=== PATIENT | female | born 1985 | race African-American/Black ===

== ENCOUNTER 2017-05-20 07:15 | Emergency (ER) | payer OTHER ==
[2017-05-20 07:32] VITALS: BP 106/71; PULSE 63; TEMP 98.8; BMI 21.9
[2017-05-20] MEDS ORDERED: SODIUM CHLORIDE 1,000 ML IV STA (08:21)
[2017-05-20] MEDS ORDERED: METOCLOPRAMIDE HCL INJECTION 10 MG/2 ML VIAL IVPUSH ONE (08:21)
[2017-05-20] MEDS ORDERED: METOCLOPRAMIDE HCL INJECTION 10 MG/2 ML VIAL ONE (08:33)
--- NOTE | 2017-05-20 08:37 | PDOC ---
History of Present Illness - General Chief Complaint: Headache Stated Complaint: HEADACHE AND BODY PAIN Time Seen by Provider: 05/20/17 07:53 History Source: Patient Exam Limitations: No Limitations - History of Present Illness Initial Comments: 32yo F with no significant PMH presents c/o headache since yesterday morning. Pain goes through the entire head, non-radiating, feels tight/tension-band, rated 10/10. Headache is worse with standing. Pt took Motrin 800mg last night which did not relieve the pain. Pt also c/o dizziness and nausea. Pt denies photophobia, hx of headaches, sick contacts, recent illness, fever, chills, vomiting, chest pain, palpitations, sob. PCP: Dr. Gauthier 05/20/17 08:23 Past History - Past Medical History Allergies/Adverse Reactions: Allergies Allergy/AdvReac Type Severity Reaction Status Date / Time No Known Allergies Allergy Verified 05/20/17 07:28 Home Medications: Ambulatory Orders NK [No Known Home Medication] 05/20/17 Other medical history: Denies - Surgical History Other Surgical History: 200405/20/17 08:38 - Reproductive History LMP comment: 04/27/17 - Immunization History Immunization Up to Date: Yes - Psycho/Social/Smoking Cessation Hx Anxiety: No Suicidal Ideation: No Smoking Status: Yes Smoking History: Never smoked Have you smoked in the past 12 months: No Information on smoking cessation initiated: No 'Breaking Loose' booklet given: 03/02/14 Hx Alcohol Use: No Drug/Substance Use Hx: Yes (Marijuana) Substance Use Type: Marijuana Review of Systems - Review of Systems Constitutional: Yes: Weight Stable. No: Chills, Diaphoresis, Fever HEENTM: No: Recent change in vision, Ear Pain, Nose Pain, Throat Pain Respiratory: No: Cough, Orthopnea, Shortness of Breath, Stridor, Wheezing, Hemoptysis Cardiac (ROS): No: Chest Pain, Edema, Irregular Heart Rate, Lightheadedness, Palpitations, Chest Tightness ABD/GI: Yes: Nausea. No: Abdominal Distended, Constipated, Diarrhea, Rectal Bleeding, Vomiting, Abdominal cramping : No: Dysuria, Hematuria Musculoskeletal: No: Joint Pain, Muscle Pain, Neck Pain Integumentary: No: Bruising, Lumps, Rash Neurological: Yes: Headache, Dizziness. No: Weakness, Unsteady Gait *Physical Exam - Vital Signs Last Vital Signs Temp Pulse Resp BP Pulse Ox 98.8 F 63 16 106/71 98 05/20/17 07:29 05/20/17 07:29 05/20/17 07:29 05/20/17 07:29 05/20/17 07:29 - Physical Exam General Appearance: Yes: Nourished, Appropriately Dressed, Mild Distress HEENT: positive: EOMI, AKUA, Normal Voice. negative: Pale Conjunctivae, Photophobia, Scleral Icterus (R), Scleral Icterus (L), Nasal Congestion, Rhinorrhea Neck: positive: Trachea midline, Supple Respiratory/Chest: positive: Lungs Clear, Normal Breath Sounds. negative: Respiratory Distress, Accessory Muscle Use Cardiovascular: positive: Regular Rhythm, Regular Rate, S1, S2. negative: Murmur Gastrointestinal/Abdominal: positive: Soft. negative: Distended, Guarding, Rebound, Tenderness Musculoskeletal: positive: Normal Inspection Extremity: positive: Normal Inspection Integumentary: positive: Normal Color, Dry, Warm Neurologic: positive: Fully Oriented, Alert, Normal Mood/Affect, Normal Response , Motor Strength 5/5 ED Treatment Course - LABORATORY CBC & Chemistry Diagram: 05/20/17 09:05 05/20/17 09:05 Medical Decision Making - Medical Decision Making 32yo F with no significant PMH presents c/o headache since yesterday morning. Pt also c/o dizziness and nausea, denies vomiting. Ddx: tension headache vs dehydration vs caffeine withdrawal headache EKG UA/urine CBC with diff, CMP NS 1 L bolus Reglan 10mg IVpush 05/20/17 08:42 05/20/17 09:28 Pt reassessed, pain is somewhat less. Fioricet 1 cap given for headache Toradol 30mg IVpush given for pain EKG -> normal rhythm, HR 59 05/20/17 10:22 CBC with diff -> wnl CMP -> wnl UA (-) urine (-) Pt reports feeling better and wanting to go home. 05/20/17 10:25 Pt can go home. *DC/Admit/Observation/Transfer Diagnosis at time of Disposition: Headache - Discharge Dispostion Disposition: HOME Condition at time of disposition: Improved Admit: No - Referrals Referrals: Humphrey Gauthier MD [Primary Care Provider] - - Patient Instructions Printed Discharge Instructions: DI for Headache Additional Instructions: Please return to the hospital for persistent or worsening symptoms of headache. I hope you feel better!
[2017-05-20 09:17] LABS: BASOPHIL 0.4 % (0-2.0); EOSINOPHIL 1.3 % (0-4.5); MCH 32.7 pg (25.7-33.7); MCHC 34.4 g/dl (32.0-36.0); MEAN CELL VOLUME 95.3 fl (80-96); MEAN PLT VOLUME 7.8 fl (7.5-11.1); NEUTROPHILS 62.5 % (42.8-82.8); PLATELET COUNT 246 K/MM3 (134-434); WHITE BLOOD COUNT 6.4 K/mm3 (4.0-10.0)
[2017-05-20] MEDS ORDERED: ACETAMINOPHEN/CAFFEINE/BUTALBITAL 1 TAB PO ONE (09:26)
[2017-05-20] MEDS ORDERED: KETOROLAC TROMETHAMINE 30 MG/1 ML VIAL IVPUSH ONE (09:27)
[2017-05-20] MEDS ORDERED: ACETAMINOPHEN/CAFFEINE/BUTALBITAL 1 TAB ONE (09:31)
[2017-05-20] MEDS ORDERED: KETOROLAC TROMETHAMINE 30 MG/1 ML VIAL ONE (09:32)
--- NOTE | 2017-05-20 09:45 | PDOC ---
Attending Attestation - Physicial Exam PE: 05/20/17 09:48 GENERAL: Awake, alert, and fully oriented, in no acute distress HEAD: No signs of trauma EYES: PERRLA, EOMI, sclera anicteric, conjunctiva clear ENT: Auricles normal inspection, hearing grossly normal, nares patent, oropharynx clear without exudates. Moist mucosa NECK: Normal ROM, supple, no lymphadenopathy, JVD, or masses. No neck tenderness. LUNGS: Breath sounds equal, clear to auscultation bilaterally. No wheezes, and no crackles HEART: Regular rate and rhythm, normal S1 and S2, no murmurs, rubs or gallops ABDOMEN: Soft, nontender, normoactive bowel sounds. No guarding, no rebound. No masses EXTREMITIES: Normal range of motion, no edema. No clubbing or cyanosis. No cords, erythema, or tenderness NEUROLOGICAL: Cranial nerves II through XII grossly intact. Normal speech, normal gait. No meningeal signs, strength is equal, sensation is intact. SKIN: Warm, Dry, normal turgor, no rashes or lesions noted. Documentation prepared by Radha Herrera, acting as medical representative for Chika Fisher DO. <Radha Herrera - Last Filed: 05/20/17 09:48> - Resident Resident Name: Alla Benson - ED Attending Attestation I have performed the following: I have examined & evaluated the patient, The case was reviewed & discussed with the resident, I agree w/resident's findings & plan, Exceptions are as noted - HPI HPI: 05/20/17 09:44 32yo female with gradual onset of SANDERS yesterday. Still with SANDERS today despite motrin yesterday. Non focal neuro. No sick contacts. Nontoxic in appearance. No meningeal signs. - Medical Decision Making 05/20/17 09:44 I, Dr. Chika Fisher DO, attest that this document has been prepared under my direction and personally reviewed by me in its entirety. I further attest, that it accurately reflects all work, treatment, procedures and medical decision -making performed by me. 05/20/17 09:53 a/p: 32yo female with SANDERS -pt describing band like pressure around head -no meningeal signs, gradual onset - not consistent with SAH or meningitis -nontoxic appearance -neuro intact -will medicate, check labs, re-eval -pt denies caffeine use, but states she eats lots of chocolate -will monitor and reassess 05/20/17 10:25 re-eval: pt ambulatory with a steady gait. Feels better. Requesting to go home. 05/20/17 10:26 pt stable for d/c to home. Discussed lab work. UA pending, but denies urinary complaints. HCG negative <Chika Fisher - Last Filed: 05/20/17 10:26> Heart Score/ECG Review - ECG Intrepretation Comment:: 05/20/17 09:52 sinus chuck at 59, nl axis, nl interval, nonspecific t wave inversions III, no acute findings <Chika Fisher - Last Filed: 05/20/17 10:26>
[2017-05-20 09:52] LABS: ALBUMIN 3.8 g/dl (3.4-5.0); ALK PHOS 57 U/L (45-117); ANION GAP 7 (8-16); BILIRUBIN,TOTAL 0.6 mg/dL (0.2-1.0); CALCIUM 8.8 mg/dL (8.5-10.1); CO2 28 mmol/L (21-32); CREATININE 0.7 mg/dL (0.55-1.02); GLUCOSE,RANDOM 90 mg/dL (74-106); SGOT/AST 28 U/L (15-37); SGPT/ALT 38 U/L (12-78); TOT PROT 7.1 g/dl (6.4-8.2)
[2017-05-20 11:41] LABS: URINE APPEARANCE CLEAR; URINE BILIRUBIN NEGATIVE (NEGATIVE); URINE BLOOD NEGATIVE (NEGATIVE); URINE COLOR LTYELLOW; URINE GLUCOSE (UA) NEGATIVE (NEGATIVE); URINE KETONE NEGATIVE (NEGATIVE); URINE LEUK ESTERASE NEGATIVE (NEGATIVE); URINE NITRITE NEGATIVE (NEGATIVE); URINE PROTEIN NEGATIVE (NEGATIVE); URINE UROBILINOGEN NEGATIVE mg/dL (0.2-1.0)
--- NOTE | 2017-05-20 13:12 | EKG ---
Test Reason : Blood Pressure : / mmHG Vent. Rate : 059 BPM Atrial Rate : 059 BPM P-R Int : 136 ms QRS Dur : 088 ms QT Int : 408 ms P-R-T Axes : 064 026 028 degrees QTc Int : 403 ms SINUS BRADYCARDIA OTHERWISE NORMAL ECG WHEN COMPARED WITH ECG OF 17-MAR-2016 20:53, NO SIGNIFICANT CHANGE WAS FOUND Confirmed by BRIAN NEWTON MD ([id number]) on 05/20/2017 1:11:57 PM Referred By: Confirmed By:BRIAN NEWTON MD
== END 2017-05-20 10:33 | disposition home or self-care (01) ==
LOC: JER 07:15
PROC: 3E0337Z Introduction of Electrolytic and Water Balance Substance into Peripheral Vein, Percutaneous Approach (ICD-10-PCS; principal; 2017-05-20)
PROC: 3E0333Z Introduction of Anti-inflammatory into Peripheral Vein, Percutaneous Approach (ICD-10-PCS; 2017-05-20)
DX: R51 Headache (principal)
CPT/HCPCS: 36415; 80053; 81003; 84703; 85025; 93005; 93010; 99283-25

== ENCOUNTER 2017-05-21 13:28 | Emergency (ER) | payer OTHER ==
[2017-05-21 13:39] VITALS: TEMP 98.3; BMI 21.9
--- NOTE | 2017-05-21 15:25 | PDOC ---
History of Present Illness - General History Source: Patient Exam Limitations: No Limitations - History of Present Illness Initial Comments: 05/21/17 15:33 The patient is a 32-year-old female with no significant past medical history, and presents to the emergency department with headache for 4 days. She reports she was seen at [facility] yesterday morning for the same issue. She states her headache subsided for a few hours, but did not go away completely. She returns as the headache is severe again and feels like a tightness and pressure around the head, similar to yesterday. She states the pain shoots through her body intermittently. She denies any numbness or tingling in the extremities. She states she took BC powder with no significant relief. The patient denies chest pain, shortness of breath, and dizziness. She denies neck pain or blurry vision. The patient denies fever, chills, nausea, vomit, diarrhea and constipation. The patient denies dysuria, frequency, urgency and hematuria. Allergies: NKDA Past Surgical History: None reported Social History: No toxic habits reported PCP: Dr. Gauthier <Rosemarie Quinones - Last Filed: 05/21/17 15:35> <Chika Fisher - Last Filed: 05/21/17 16:50> - General Chief Complaint: Headache Stated Complaint: REVISIT/ HEADACHE Time Seen by Provider: 05/21/17 14:35 Past History <Rosemarie Quinones - Last Filed: 05/21/17 15:35> - Past Medical History Other medical history: DENIES. - Immunization History Immunization Up to Date: Yes - Psycho/Social/Smoking Cessation Hx Anxiety: No Suicidal Ideation: No Smoking Status: Yes Smoking History: Never smoked Have you smoked in the past 12 months: No Number of Cigarettes Smoked Daily: 2 Information on smoking cessation initiated: No 'Breaking Loose' booklet given: 03/02/14 Hx Alcohol Use: No Drug/Substance Use Hx: Yes (Marijuana) Substance Use Type: Marijuana <Chika Fisher - Last Filed: 05/21/17 16:50> - Past Medical History Allergies/Adverse Reactions: Allergies Allergy/AdvReac Type Severity Reaction Status Date / Time No Known Allergies Allergy Verified 05/21/17 13:36 Home Medications: Ambulatory Orders NK [No Known Home Medication] 05/20/17 Review of Systems - Review of Systems Able to Perform ROS?: Yes Comments:: 05/21/17 15:33 GENERAL/CONSTITUTIONAL: No fever or chills. No weakness. HEAD, EYES, EARS, NOSE AND THROAT: No change in vision. No ear pain or discharge. No sore throat. CARDIOVASCULAR: No chest pain or shortness of breath. RESPIRATORY: No cough, wheezing, or hemoptysis. GASTROINTESTINAL: No nausea, vomiting, diarrhea or constipation. GENITOURINARY: No dysuria, frequency, or change in urination. MUSCULOSKELETAL: No joint or muscle swelling or pain. No neck or back pain. SKIN: No rash NEUROLOGIC: (+) Headache. No vertigo, loss of consciousness, or change in strength/sensation. ENDOCRINE: No increased thirst. No abnormal weight change. HEMATOLOGIC/LYMPHATIC: No anemia, easy bleeding, or history of blood clots. ALLERGIC/IMMUNOLOGIC: No hives or skin allergy. <Rosemarie Quinones - Last Filed: 05/21/17 15:35> *Physical Exam - Vital Signs Last Vital Signs Temp Pulse Resp BP Pulse Ox 98.3 F 61 16 115/76 100 05/21/17 13:36 05/21/17 13:36 05/21/17 13:36 05/21/17 13:36 05/21/17 13:36 - Physical Exam Comments: 05/21/17 15:33 GENERAL: Awake, alert, and fully oriented, in no acute distress HEAD: No signs of trauma EYES: PERRLA, EOMI, sclera anicteric, conjunctiva clear ENT: Auricles normal inspection, hearing grossly normal, nares patent, oropharynx clear without exudates. Moist mucosa NECK: Normal ROM, supple, no lymphadenopathy, JVD, or masses LUNGS: Breath sounds equal, clear to auscultation bilaterally. No wheezes, and no crackles HEART: Regular rate and rhythm, normal S1 and S2, no murmurs, rubs or gallops ABDOMEN: Soft, nontender, normoactive bowel sounds. No guarding, no rebound. No masses EXTREMITIES: Normal range of motion, no edema. No clubbing or cyanosis. No cords, erythema, or tenderness NEUROLOGICAL: Cranial nerves II through XII grossly intact. Normal speech, normal gait SKIN: Warm, Dry, normal turgor, no rashes or lesions noted. <Rosemarie Quinones - Last Filed: 05/21/17 15:35> - Vital Signs Last Vital Signs Temp Pulse Resp BP Pulse Ox 98.3 F 61 16 115/76 100 05/21/17 13:36 05/21/17 13:36 05/21/17 13:36 05/21/17 13:36 05/21/17 13:36 <Chika Fisher - Last Filed: 05/21/17 16:50> Medical Decision Making - Medical Decision Making 05/21/17 16:30 32yo female with diffuse sanders that feels like a band around her head -no trauma -no meningeal signs -no sick contacts -non focal neuro -labs checked yesterday -will do ct head today, remedicate 05/21/17 16:31 pt received fioricet yesterday for SANDERS - barbs in UDS 05/21/17 16:49 pt signed out to the oncoming ED physician <Chika Fisher - Last Filed: 05/21/17 16:50> *DC/Admit/Observation/Transfer - Attestations Scribe Attestion: 05/21/17 15:34 Documentation prepared by Rosemarie Quinones, acting as director global medical affairs for Chika Fisher, <Rosemarie Quinones - Last Filed: 05/21/17 15:35> <Chika Fisher - Last Filed: 05/21/17 16:50> Diagnosis at time of Disposition: Headache - Referrals Referrals: Humphrey Gauthier MD [Primary Care Provider] -
[2017-05-21] MEDS ORDERED: METOCLOPRAMIDE HCL INJECTION 10 MG/2 ML VIAL IVPB ONE (15:26)
[2017-05-21] MEDS ORDERED: SODIUM CHLORIDE 0.9% 1000 ML INFUS.BAG IV ONE (15:26)
[2017-05-21] MEDS ORDERED: DEXAMETHASONE SOD PHOSPHATE 10 MG/1 ML VIAL IVPUSH ONE (15:26)
[2017-05-21] MEDS ORDERED: ACETAMINOPHEN 325 MG TABLET (FP) PO ONE (15:26)
[2017-05-21] MEDS ORDERED: KETOROLAC TROMETHAMINE 30 MG/1 ML VIAL IVPUSH ONE (15:29)
[2017-05-21] MEDS ORDERED: METOCLOPRAMIDE HCL INJECTION 10 MG/2 ML VIAL ONE (15:48)
[2017-05-21] MEDS ORDERED: KETOROLAC TROMETHAMINE 30 MG/1 ML VIAL ONE (15:48)
[2017-05-21] MEDS ORDERED: DEXAMETHASONE SOD PHOSPHATE 10 MG/1 ML VIAL ONE (15:48)
[2017-05-21] MEDS ORDERED: ACETAMINOPHEN 325 MG TABLET (FP) ONE (15:48)
[2017-05-21 16:14] LABS: URINE MARIJUANA THC POSITIVE ng/ml (CUTOFF=50)
--- NOTE | 2017-05-21 17:30 | PDOC ---
*Physical Exam - Vital Signs Last Vital Signs Temp Pulse Resp BP Pulse Ox 98.3 F 61 16 115/76 100 05/21/17 13:36 05/21/17 13:36 05/21/17 13:36 05/21/17 13:36 05/21/17 13:36 ED Treatment Course - ADDITIONAL ORDERS Additional order review: Laboratory Results 05/21/17 05/21/17 15:30 15:29 Urine HCG, Qual Negative Opiates Screen Negative Methadone Screen Negative Barbiturate Screen Positive Phencyclidine Screen Negative Ur Amphetamines Screen Negative MDMA (Ecstasy) Screen Negative Benzodiazepines Screen Negative Cocaine Screen Negative U Marijuana (THC) Screen Positive - Medications Given in the ED: ED Medications Discontinued Medications Generic Name Dose Route Start Last Admin Trade Name Rena PRN Reason Stop Dose Admin Acetaminophen 975 mg 05/21/17 15:26 05/21/17 15:57 Tylenol - PO 05/21/17 15:27 975 mg ONCE ONE Administration Dexamethasone Sodium Phosphate 10 mg 05/21/17 15:26 05/21/17 15:56 Decadron Injection - IVPUSH 05/21/17 15:27 10 mg ONCE ONE Administration Diphenhydramine HCl 12.5 mg 05/21/17 15:26 05/21/17 15:56 Benadryl Injection - IVPUSH 05/21/17 15:27 Not Given ONCE ONE Ketorolac Tromethamine 30 mg 05/21/17 15:29 05/21/17 15:57 Toradol Injection - IVPUSH 05/21/17 15:30 30 mg ONCE ONE Administration Metoclopramide HCl 10 mg 05/21/17 15:26 05/21/17 15:56 Reglan Injection - IVPB 05/21/17 15:27 10 mg ONCE ONE Administration Sodium Chloride 1,000 ml 05/21/17 15:26 05/21/17 15:56 Normal Saline - IV 05/21/17 15:27 1,000 ml ONCE ONE Administration Medical Decision Making - Medical Decision Making 05/21/17 18:24 Patient received on signout from Dr. Fisher, presented with headache. CTH was obtained, found to have FB in L ear. I examined her and found an earring back in the ear. Will attempt to remove. *DC/Admit/Observation/Transfer Diagnosis at time of Disposition: Headache Qualifiers: Headache type: unspecified Headache chronicity pattern: unspecified pattern Intractability: not intractable Qualified Code(s): R51 - Headache Foreign body of ear, left Qualifiers: Encounter type: initial encounter Qualified Code(s): T16.2XXA - Foreign body in left ear, initial encounter - Discharge Dispostion Disposition: HOME Condition at time of disposition: Stable Admit: No - Referrals Referrals: Humphrey Gauthier MD [Primary Care Provider] - - Patient Instructions Printed Discharge Instructions: DI for Removal of Foreign Body From Ear - Post Discharge Activity
[2017-05-21 18:05] VITALS: BP 118/74; PULSE 66
--- NOTE | 2017-05-22 02:41 | PDOC ---
*Physical Exam - Vital Signs Last Vital Signs Temp Pulse Resp BP Pulse Ox 98.3 F 66 14 118/74 95 05/21/17 13:36 05/21/17 18:04 05/21/17 18:04 05/21/17 18:04 05/21/17 18:04 - Physical Exam Comments: 05/22/17 02:41 Left ear canal +FB/earring Removed with alligator clamps with success ED Treatment Course - ADDITIONAL ORDERS Additional order review: Laboratory Results 05/21/17 05/21/17 15:30 15:29 Urine HCG, Qual Negative Opiates Screen Negative Methadone Screen Negative Barbiturate Screen Positive Phencyclidine Screen Negative Ur Amphetamines Screen Negative MDMA (Ecstasy) Screen Negative Benzodiazepines Screen Negative Cocaine Screen Negative U Marijuana (THC) Screen Positive - Medications Given in the ED: ED Medications Discontinued Medications Generic Name Dose Route Start Last Admin Trade Name Freq PRN Reason Stop Dose Admin Acetaminophen 975 mg 05/21/17 15:26 05/21/17 15:57 Tylenol - PO 05/21/17 15:27 975 mg ONCE ONE Administration Dexamethasone Sodium Phosphate 10 mg 05/21/17 15:26 05/21/17 15:56 Decadron Injection - IVPUSH 05/21/17 15:27 10 mg ONCE ONE Administration Diphenhydramine HCl 12.5 mg 05/21/17 15:26 05/21/17 15:56 Benadryl Injection - IVPUSH 05/21/17 15:27 Not Given ONCE ONE Ketorolac Tromethamine 30 mg 05/21/17 15:29 05/21/17 15:57 Toradol Injection - IVPUSH 05/21/17 15:30 30 mg ONCE ONE Administration Metoclopramide HCl 10 mg 05/21/17 15:26 05/21/17 15:56 Reglan Injection - IVPB 05/21/17 15:27 10 mg ONCE ONE Administration Sodium Chloride 1,000 ml 05/21/17 15:26 05/21/17 15:56 Normal Saline - IV 05/21/17 15:27 1,000 ml ONCE ONE Administration *DC/Admit/Observation/Transfer Diagnosis at time of Disposition: Headache Qualifiers: Headache type: unspecified Headache chronicity pattern: unspecified pattern Intractability: not intractable Qualified Code(s): R51 - Headache Foreign body of ear, left Qualifiers: Encounter type: initial encounter Qualified Code(s): T16.2XXA - Foreign body in left ear, initial encounter - Discharge Dispostion Disposition: HOME Condition at time of disposition: Stable - Referrals Referrals: Humphrey Gauthier MD [Primary Care Provider] - - Patient Instructions Printed Discharge Instructions: DI for Removal of Foreign Body From Ear - Post Discharge Activity
== END 2017-05-21 19:26 | disposition home or self-care (01) ==
LOC: JER 13:28 → JERFT 13:28 → JER 19:26
PROC: 09C1XZZ Extirpation of Matter from Left External Ear, External Approach (ICD-10-PCS; principal; 2017-05-21)
PROC: 3E0333Z Introduction of Anti-inflammatory into Peripheral Vein, Percutaneous Approach (ICD-10-PCS; 2017-05-21)
PROC: 3E033GC Introduction of Other Therapeutic Substance into Peripheral Vein, Percutaneous Approach (ICD-10-PCS; 2017-05-21)
DX: R51 Headache (principal); T16.2XXA Foreign body in left ear, initial encounter; X58.XXXA Exposure to other specified factors, initial encounter; Y93.89 Activity, other specified; Y92.89 Other specified places as the place of occurrence of the external cause
CPT/HCPCS: 10120; 70450-TC; 80307; 84703; 96374; 96375; 99282-25

== ENCOUNTER 2018-05-16 22:27 | Emergency (ER) | payer SELFPAY ==
[2018-05-16 22:33] VITALS: BP 117/77; PULSE 73; TEMP 98.8; BMI 21.4
[2018-05-16] MEDS ORDERED: SODIUM CHLORIDE 1,000 ML IV STA (23:30)
[2018-05-16] MEDS ORDERED: ACETAMINOPHEN 1000 MG/100 ML VIAL (NON FORMULARY) IVPB ONE (23:30)
--- NOTE | 2018-05-16 23:30 | PDOC ---
History of Present Illness - General Chief Complaint: Nausea/Vomiting Stated Complaint: Nausea/Vomiting Time Seen by Provider: 05/16/18 23:17 History Source: Patient - History of Present Illness Initial Comments: 05/17/18 01:31 33 year old female with nausea, vomiting and LLQ pain after eating a salmon burger for dinner. patient reported that she has been constipated for the last 4 days and took a laxative prior to arrival. denies fever/ chills. Past History - Past Medical History Allergies/Adverse Reactions: Allergies Allergy/AdvReac Type Severity Reaction Status Date / Time No Known Allergies Allergy Verified 05/21/17 13:36 Home Medications: Ambulatory Orders NK [No Known Home Medication] 05/20/17 COPD: No - Immunization History Immunization Up to Date: Yes - Suicide/Smoking/Psychosocial Hx Smoking Status: Yes Smoking History: Never smoked Have you smoked in the past 12 months: No Number of Cigarettes Smoked Daily: 2 Information on smoking cessation initiated: No 'Breaking Loose' booklet given: 03/02/14 Hx Alcohol Use: Yes (social) Drug/Substance Use Hx: No Substance Use Type: Marijuana Review of Systems - Review of Systems Able to Perform ROS?: Yes Is the patient limited Taiwanese proficient: No Constitutional: No: Symptoms Reported, See HPI, Chills, Diaphoresis, Fever, Loss of Appetite, Malaise, Night Sweats, Weakness, Weight Stable, Unintentional Wgt. Loss, Unexplained wgt Loss, Other Respiratory: No: Symptoms reported, See HPI, Cough, Orthopnea, Shortness of Breath, SOB with Exertion, SOB at Rest, Stridor, Wheezing, Productive cough, Hemoptysis, Other ABD/GI: Yes: Constipated, Nausea, Vomiting, Abdominal cramping. No: Symptoms Reported, See HPI, Abdominal Distended, Abd. Pain w/ defecation, Blood Streaked Bowels, Diarrhea, Difficulty Swallowing, Poor Appetite, Poor Fluid Intake, Rectal Bleeding, Indigestion, Tarry Stools, Other : No: Symptoms Reported, See HPI, Burning, Dysuria, Discharge, Frequency, Flank Pain, Hematuria, Incontinence, Pain, Urgency, Testicular Mass, Testicular Swelling, Lesions, Testicular Pain, Other *Physical Exam - Vital Signs Last Vital Signs Temp Pulse Resp BP Pulse Ox 98.8 F 73 18 117/77 98 05/16/18 22:29 05/16/18 22:29 05/16/18 22:29 05/16/18 22:29 05/16/18 22:29 - Physical Exam General Appearance: Yes: Appropriately Dressed Respiratory/Chest: positive: Lungs Clear, Normal Breath Sounds Gastrointestinal/Abdominal: positive: Normal Bowel Sounds, Tender (LLQ), Soft Musculoskeletal: positive: Normal Inspection Extremity: positive: Normal Capillary Refill, Normal Inspection, Normal Range of Motion ED Treatment Course - LABORATORY CBC & Chemistry Diagram: 05/17/18 00:20 05/17/18 00:20 - RADIOLOGY Radiograph Interpretation: 05/17/18 02:46 CTAP: negative Progress Note - Progress Note Progress Note: A: abdominal pain; gastro enteritis P: cbc cmp lipase IVF antiemetics CTAP: negative Medical Decision Making - Medical Decision Making 05/17/18 04:12 tolerated PO water. UA pending. will d/c home *DC/Admit/Observation/Transfer Diagnosis at time of Disposition: Gastroenteritis - Discharge Dispostion Disposition: HOME Condition at time of disposition: Stable - Referrals - Patient Instructions Printed Discharge Instructions: DI for Vomiting -- Adult Additional Instructions: drink plenty of fluids including gatorade; water. - Post Discharge Activity Forms/Work/School Notes: Back to Work
[2018-05-16] MEDS ORDERED: ONDANSETRON 4 MG/2 ML VIAL IVPUSH ONE (23:45)
[2018-05-16] MEDS ORDERED: ONDANSETRON 4 MG/2 ML VIAL ONE (23:53)
[2018-05-16] MEDS ORDERED: ACETAMINOPHEN INJECTION 100 ML IVPB ONE (23:53)
[2018-05-17 00:42] LABS: BASO % 0.3 % (0-2.0); EOS % 0.6 % (0-4.5); HEMATOCRIT 44.6 % (32.4-45.2); HEMOGLOBIN 15.4 GM/dL (10.7-15.3); LYMPH % 13.7 % (8-40); MCH 32.7 pg (25.7-33.7); MCHC 34.4 g/dl (32.0-36.0); MEAN PLT VOLUME 8.5 fl (7.5-11.1); MONO % 4.5 % (3.8-10.2); NEUT % 80.9 % (42.8-82.8); PLATELET COUNT 280 K/MM3 (134-434); RBC 4.69 M/mm3 (3.60-5.2); RDW 13.5 % (11.6-15.6); WHITE BLOOD COUNT 7.5 K/mm3 (4.0-10.0)
[2018-05-17 01:19] LABS: ALBUMIN 4.3 g/dl (3.4-5.0); ALK PHOS 63 U/L (45-117); ANION GAP 9 MMOL/L (8-16); BILIRUBIN,TOTAL 0.7 mg/dL (0.2-1.0); BLOOD UREA NITROGEN 14 mg/dL (7-18); CALCIUM 9.8 mg/dL (8.5-10.1); CHLORIDE 100 mmol/L (98-107); CO2 26 mmol/L (21-32); CREATININE 0.9 mg/dL (0.55-1.02); GLUCOSE,RANDOM 108 mg/dL (74-106); LIPASE 55 U/L (73-393); SGOT/AST 10 U/L (15-37); SGPT/ALT 15 U/L (12-78); SODIUM 135 mmol/L (136-145); TOT PROT 8.2 g/dl (6.4-8.2)
[2018-05-17] MEDS ORDERED: SODIUM CHLORIDE 1,000 ML IV STA (02:48)
[2018-05-17] MEDS ORDERED: METOCLOPRAMIDE HCL INJECTION 10 MG/2 ML VIAL IVPB ONE (02:48)
[2018-05-17] MEDS ORDERED: METOCLOPRAMIDE HCL INJECTION 10 MG/2 ML VIAL ONE (03:02)
[2018-05-17 04:38] LABS: URINE APPEARANCE CLEAR; URINE BILIRUBIN NEGATIVE (<2.0 mg/dL); URINE COLOR LTYELLOW; URINE GLUCOSE (UA) NEGATIVE (NEGATIVE); URINE KETONE 2+ (NEGATIVE); URINE LEUK ESTERASE NEGATIVE (NEGATIVE); URINE NITRITE NEGATIVE (NEGATIVE); URINE PROTEIN NEGATIVE (NEGATIVE); URINE UROBILINOGEN NEGATIVE mg/dL (0.2-1.0)
== END 2018-05-17 04:25 | disposition home or self-care (01) ==
LOC: JER 22:27
PROC: 3E033NZ Introduction of Analgesics, Hypnotics, Sedatives into Peripheral Vein, Percutaneous Approach (ICD-10-PCS; principal; 2018-05-16)
PROC: 3E033GC Introduction of Other Therapeutic Substance into Peripheral Vein, Percutaneous Approach (ICD-10-PCS; 2018-05-16)
PROC: 3E033GC Introduction of Other Therapeutic Substance into Peripheral Vein, Percutaneous Approach (ICD-10-PCS; 2018-05-16)
DX: K52.9 Noninfective gastroenteritis and colitis, unspecified (principal)
CPT/HCPCS: 36415; 74177-TC; 80053; 81003; 83690; 84703; 85025; 99281-25; J0131; J7030